=== PATIENT | female | born 1925 | race African-American/Black ===

== ENCOUNTER 2016-08-01 14:19 | Observation (INO) ==
[2016-08-01 16:29] LABS: Alanine Aminotransferase 9 Units/L (0-55); Albumin 2.5 g/dL (3.5-5.0); Albumin/Globulin Ratio 0.6 (1.1-2.2); Alkaline Phosphatase 74 Units/L (38-126); Aspartate Amino Transferase 13 Units/L (5-34); BUN/Creatinine Ratio 19 (6-26); Bilirubin,Direct 0.1 mg/dL (0.0-0.5); Bilirubin,Indirect 0.2 mg/dL (0.0-1.2); Bilirubin,Total 0.3 mg/dL (0.2-1.2); Blood Urea Nitrogen 15 mg/dL (7-20); Calcium 9.6 mg/dL (8.6-10.8); Carbon Dioxide 24 mEq/L (19-29); Chloride 111 mEq/L (98-109); Glucose 96 mg/dL (70-99); Osmolality,Calculated 295 (280-300); Potassium 4.3 mEq/L (3.5-4.5); Sodium 142 mEq/L (136-145); Total Protein 6.5 g/dL (6.0-8.3); eGFR For African Americans > 60 (> 60); eGFR For Non-African Americans > 60 (> 60)
[2016-08-01 16:30] LABS: Ethanol < 10 mg/dL (0-10)
[2016-08-01 17:35] LABS: Bilirubin,Urine Negative (Negative); Blood,Urine Negative (Negative); Clarity,Urine Turbid (Clear); Color,Urine Yellow (Yellow); Glucose,Urine (UA) Normal (Normal); Ketones,Urine Negative (Negative); Leukocyte Esterase,Urine Negative (Negative); Nitrite,Urine Negative (Negative); Protein,Urine Negative (Neg-Trace); Specific Gravity,Urine 1.013 (1.010-1.025); Urobilinogen,Urine Normal (Normal)
[2016-08-01 17:39] LABS: Bacteria,Urine Many per hpf (None-Few); Hyaline Casts,Urine None Seen per lpf (None-Few); Squamous Epithelial Cell,Urine Many per lpf (None-Few)
[2016-08-01 17:40] LABS: Amphetamine Screen,Urine Negative ng/mL (Cutoff=1000); Barbiturate Screen,Urine Negative ng/mL (Cutoff=200); Benzodiazepines Screen,Urine Negative ng/mL (Cutoff=200); Cannabinoid Screen,Urine Negative ng/mL (Cutoff = 50); Cocaine Screen,Urine Negative ng/mL (Cutoff= 300); Opiate Screen,Urine Negative ng/mL (Cutoff=300); Phencyclidine Screen,Urine Negative ng/mL (Cutoff=25)
[2016-08-01 18:17] LABS: Basophils % 0.6 %; Eosinophils # 0.2 K/mcL (0.0-0.6); Eosinophils % 3.7 %; Immature Granulocytes % 0.3 % (0-4); Lymphocytes # 1.7 K/mcL (0.6-4.6); Lymphocytes % 27.2 %; Mean Corpuscular HGB Conc 32.4 g/dL (31.6-35.5); Mean Corpuscular Hemoglobin 30.2 pg (28.0-33.3); Mean Corpuscular Volume 93.2 fL (83.0-100.0); Mean Platelet Volume 9.6 fL (9.4-12.4); Monocytes # 0.4 K/mcL (0.0-1.3); Monocytes % 5.6 %; Neutrophils # 3.9 K/mcL (1.6-8.9); Platelet Count 251 K/mcL (140-400); Red Blood Count 3.97 M/mcL (3.82-4.97); Red Cell Distribution Width 13.8 % (11.5-14.5); Segmented Neutrophils % 62.6 %
[2016-08-01 18:26] LABS: INR 1.3; Prothrombin Time 13.7 Seconds (9.4-12.1)
[2016-08-01 18:34] LABS: Activated Partial Thrombo Time 20.4 Seconds (26.0-36.0)
--- NOTE | 2016-08-01 18:51 | Emergency Department Note ---
Disposition Clinical Impression: Delirium due to general medical condition Altered mental status Qualifiers: Altered mental status type: unspecified Qualified Code(s): R41.82 - Altered mental status, unspecified Disposition: Admitted As Inpatient Condition: Good Time of Disposition: 18:53 Altered Mental Status HPI - General Chief Complaint: ED Altered Mental Status Stated Complaint: ams Time Seen by Provider: 08/01/16 14:22 Source: EMS Mode of arrival: ambulatory Limitations: altered mental status Nursing Notes Reviewed: Yes Vital Signs Reviewed: Yes - History of Present Illness HPI Narrative: History source: Patient is unable to provide information for this note. Info was gathered from the patient, hospital staff, the patient's chart. History limitations: Patient condition Medications: As per nurses note 89-year-old female brought in by EMS after a period of altered mental status where she was verbally unresponsive. Patient is currently residing at a care home, is nonambulatory, had a period of time where she was verbally unresponsive to staff. This persisted until her arrival to the emergency department where she is now able to answer basic questions. Patient is unable to provide any history regarding her symptoms. Family states the patient has periods of confusion however she is always able to answer questions and that today is different from previous times. They do report that she has a history of urinary tract infections which have resulted in similar symptoms. They deny recent trauma. They report she was recently started on any medication for Parkinson's disease but do not know which one. - Related Data Home Medications Medication Instructions Recorded Confirmed Acetaminophen [Tylenol] 325 mg PO Q6HR PRN 02/23/15 08/01/16 Amlodipine Besylate [Norvasc] 10 mg PO QAM 02/23/15 08/01/16 Aspirin Enteric Coated [Aspirin EC] 81 mg PO QAM 02/23/15 08/01/16 Atorvastatin [Lipitor] 10 mg PO HS 02/23/15 08/01/16 Docusate [Colace] 100 mg PO BID 02/23/15 08/01/16 Gabapentin 300 mg PO QAM 02/23/15 08/01/16 HydrALAZINE 50 mg PO Q8HR 02/23/15 08/01/16 Lidocaine Patch [Lidoderm 5% patch] 1 patch TP QA 02/23/15 08/01/16 Lisinopril [Zestril] 20 mg PO QAM 02/23/15 08/01/16 Magnesium Hydroxide [Milk of 30 ml PO DAILY PRN 02/23/15 08/01/16 Magnesia] Metoprolol Tartrate [Lopressor] 25 mg PO BID 02/23/15 08/01/16 Multivitamin [Multivitamins] 1 cap PO QAM 02/23/15 08/01/16 Nitroglycerin [Nitrostat] 0.4 mg SL AD PRN 02/23/15 08/01/16 Pantoprazole Sodium 40 mg PO QAM 02/23/15 08/01/16 Polyethylene Glycol 3350 [MiraLAX] 17 gm PO QAM 02/23/15 08/01/16 Pramipexole [Mirapex] 0.25 mg PO BID 02/23/15 08/01/16 Cyanocobalamin (Vitamin B-12) 1,000 mcg PO DAILY 08/01/16 08/01/16 [Vitamin B12] Divalproex Sodium [Divalproex 250 mg PO DAILY 08/01/16 08/01/16 Sodium] Nystatin POWDER [Nystop] 1 appl TP BID 08/01/16 08/01/16 Allergies Allergy/AdvReac Type Severity Reaction Status Date / Time No Known Allergies Allergy Verified 02/23/15 16:46 Limitations: ROS unobtainable due to patients medical condition Past Medical History - Past Medical History Attestation: Yes The following information was validated with the patient. Source: old records reviewed, obtained from family Medical history: Reports: arthritis, CVA, DVT, dementia, diabetes, GERD, hyperlipidemia, hypertension Surgical history: Reports: appendectomy Psychiatric history: Reports: anxiety - Social History Smoking Status: Never smoker Smokeless Tobacco Status: No Alcohol use: Reports: none Drug use: Reports: none Physical Exam General: Alert and in no acute distress Skin: Warm, dry, intact Head: Normocephalic and atraumatic Neck: Supple, trachea midline and no tenderness Cardiovascular: RRR, no murmur, normal perfusion Respiratory: CTAB, no wheezing, cough, or respiratory distress Musculoskeletal: Normal strength, no tenderness, swelling or deformity GI: Soft, nontender, nondistended. Bowel sounds present Neuro: Oriented to person only. Unable to complete a full neurologic exam. - General General appearance: in no apparent distress Course Vital Signs Temperature 98.3 F 08/01/16 14:21 Pulse Rate 66 08/01/16 14:21 Respiratory Rate 12 08/01/16 14:21 Blood Pressure 173/74 08/01/16 14:21 O2 Sat by Pulse Oximetry 99 08/01/16 14:21 Temperature 98.3 F 08/01/16 14:21 Pulse Rate 67 08/01/16 16:43 Respiratory Rate 11 08/01/16 20:18 Blood Pressure 173/73 08/01/16 20:18 O2 Sat by Pulse Oximetry 96 08/01/16 16:43 Oxygen Delivery Oxygen Delivery Room Air Altered Mental Status - MDM Narrative Medical decision making narrative: Patient admitted to the hospital for altered mental status. - Medical Records Medical records reviewed: Yes I reviewed the patient's medical records. - Lab Data Lab results reviewed: Yes I reviewed the patient's lab results. Result diagrams: 08/01/16 18:06 08/01/16 16:05 Lab Results 08/01/16 08/01/16 08/01/16 Range/Units 16:05 17:10 17:10 WBC (4.3-11.1) K/mcL RBC (3.82-4.97) M/mcL Hgb (11.5-15.4) g/dL Hct (35.3-44.9) % MCV (83.0-100.0) fL MCH (28.0-33.3) pg MCHC (31.6-35.5) g/dL RDW (11.5-14.5) % Plt Count (140-400) K/mcL MPV (9.4-12.4) fL Immature Gran % (0-4) % Seg Neutrophils % % Lymphocytes % % Monocytes % % Eosinophils % % Basophils % % Neutrophils # (1.6-8.9) K/mcL Lymphocytes # (0.6-4.6) K/mcL Monocytes # (0.0-1.3) K/mcL Eosinophils # (0.0-0.6) K/mcL Basophils # (0.0-0.2) K/mcL PT (9.4-12.1) Seconds INR APTT (26.0-36.0) Seconds Sodium 142 (136-145) mEq/L Potassium 4.3 (3.5-4.5) mEq/L Chloride 111 H (98-109) mEq/L Carbon Dioxide 24 (19-29) mEq/L BUN 15 (7-20) mg/dL Creatinine 0.80 (0.57-1.11) mg/dL Est GFR ( Amer) > 60 (> 60) Est GFR (Non-Af Amer) > 60 (> 60) BUN/Creatinine Ratio 19 (6-26) Glucose 96 (70-99) mg/dL Calculated Osmolality 295 (280-300) Calcium 9.6 (8.6-10.8) mg/dL Total Bilirubin 0.3 (0.2-1.2) mg/dL Direct Bilirubin 0.1 (0.0-0.5) mg/dL Indirect Bilirubin 0.2 (0.0-1.2) mg/dL AST 13 (5-34) Units/L ALT 9 (0-55) Units/L Alkaline Phosphatase 74 (38-126) Units/L Troponin I (0-0.03) ng/mL Serum Total Protein 6.5 (6.0-8.3) g/dL Albumin 2.5 L (3.5-5.0) g/dL Globulin 4.0 H (2.4-3.5) g/dL Albumin/Globulin Ratio 0.6 L (1.1-2.2) Urine Color Yellow (Yellow) Urine Clarity Turbid A (Clear) Urine pH 6.0 (5.0-8.0) pH Units Ur Specific [place] 1.013 (1.010-1.025) Urine Protein Negative (Neg-Trace) mg/dL Urine Glucose (UA) Normal (Normal) mg/dL Urine Ketones Negative (Negative) mg/dL Urine Blood Negative (Negative) Urine Nitrite Negative (Negative) Urine Bilirubin Negative (Negative) Urine Urobilinogen Normal (Normal) mg/dL Ur Leukocyte Esterase Negative (Negative) Urine Microscopic RBC 3-5 H (0-3) per hpf Urine Microscopic WBC 3-5 H (0-3) per hpf Ur Squamous Epith Cells Many H (None-Few) per lpf Urine Bacteria Many H (None-Few) per hpf Hyaline Casts None Seen (None-Few) per lpf Urine Yeast Test Not Performed Ur Culture Indicated? NO (NO) Urine Opiates Screen Negative (Djavsc=419) ng/mL Ur Barbiturates Screen Negative (Kwrypf=008) ng/mL Valproic Acid 28.76 L (50-100) mcg/mL Ur Phencyclidine Scrn Negative (Cutoff=25) ng/mL Ur Amphetamines Screen Negative (Badsks=5638) ng/mL U Benzodiazepines Scrn Negative (Iufsfs=036) ng/mL Urine Cocaine Screen Negative (Cutoff= 300) ng/mL U Marijuana (THC) Screen Negative (Cutoff = 50) ng/mL Ethyl Alcohol < 10 (0-10) mg/dL 08/01/16 08/01/16 08/01/16 Range/Units 18:06 18:06 18:06 WBC 6.3 (4.3-11.1) K/mcL RBC 3.97 (3.82-4.97) M/mcL Hgb 12.0 (11.5-15.4) g/dL Hct 37.0 (35.3-44.9) % MCV 93.2 (83.0-100.0) fL MCH 30.2 (28.0-33.3) pg MCHC 32.4 (31.6-35.5) g/dL RDW 13.8 (11.5-14.5) % Plt Count 251 (140-400) K/mcL MPV 9.6 (9.4-12.4) fL Immature Gran % 0.3 (0-4) % Seg Neutrophils % 62.6 % Lymphocytes % 27.2 % Monocytes % 5.6 % Eosinophils % 3.7 % Basophils % 0.6 % Neutrophils # 3.9 (1.6-8.9) K/mcL Lymphocytes # 1.7 (0.6-4.6) K/mcL Monocytes # 0.4 (0.0-1.3) K/mcL Eosinophils # 0.2 (0.0-0.6) K/mcL Basophils # 0.0 (0.0-0.2) K/mcL PT 13.7 H (9.4-12.1) Seconds INR 1.3 APTT 20.4 L (26.0-36.0) Seconds Sodium (136-145) mEq/L Potassium (3.5-4.5) mEq/L Chloride (98-109) mEq/L Carbon Dioxide (19-29) mEq/L BUN (7-20) mg/dL Creatinine (0.57-1.11) mg/dL Est GFR ( Amer) (> 60) Est GFR (Non-Af Amer) (> 60) BUN/Creatinine Ratio (6-26) Glucose (70-99) mg/dL Calculated Osmolality (280-300) Calcium (8.6-10.8) mg/dL Total Bilirubin (0.2-1.2) mg/dL Direct Bilirubin (0.0-0.5) mg/dL Indirect Bilirubin (0.0-1.2) mg/dL AST (5-34) Units/L ALT (0-55) Units/L Alkaline Phosphatase (38-126) Units/L Troponin I 0.02 (0-0.03) ng/mL Serum Total Protein (6.0-8.3) g/dL Albumin (3.5-5.0) g/dL Globulin (2.4-3.5) g/dL Albumin/Globulin Ratio (1.1-2.2) Urine Color (Yellow) Urine Clarity (Clear) Urine pH (5.0-8.0) pH Units Ur Specific [place] (1.010-1.025) Urine Protein (Neg-Trace) mg/dL Urine Glucose (UA) (Normal) mg/dL Urine Ketones (Negative) mg/dL Urine Blood (Negative) Urine Nitrite (Negative) Urine Bilirubin (Negative) Urine Urobilinogen (Normal) mg/dL Ur Leukocyte Esterase (Negative) Urine Microscopic RBC (0-3) per hpf Urine Microscopic WBC (0-3) per hpf Ur Squamous Epith Cells (None-Few) per lpf Urine Bacteria (None-Few) per hpf Hyaline Casts (None-Few) per lpf Urine Yeast Ur Culture Indicated? (NO) Urine Opiates Screen (Gyfrfw=830) ng/mL Ur Barbiturates Screen (Vlxlyp=208) ng/mL Valproic Acid (50-100) mcg/mL Ur Phencyclidine Scrn (Cutoff=25) ng/mL Ur Amphetamines Screen (Weedvt=7438) ng/mL U Benzodiazepines Scrn (Vvnhai=798) ng/mL Urine Cocaine Screen (Cutoff= 300) ng/mL U Marijuana (THC) Screen (Cutoff = 50) ng/mL Ethyl Alcohol (0-10) mg/dL - Radiology Data Radiology results reviewed: Yes I reviewed the patient's radiology results. - EKG Data EKG attestation: Yes I reviewed and interpreted this EKG. EKG results narrative: ECG - interpreted by ED physician. Rate 60, normal sinus rhythm, no STEMI, GA, QT intervals, and QRS within normal limits TPA Checklist - LKW: 3-4.5 hrs Add. Contraindications Patient/family understanding: The patient/family members have been counseled and understood the risk, benefit , and alternatives of treatment.
[2016-08-01 19:04] LABS: Valproate 28.76 mcg/mL (50-100)
[2016-08-01] MEDS ORDERED: MOM Conc 10 ML UD.LIQ PO PRN (23:09)
[2016-08-01] MEDS ORDERED: Acetaminophen 325 MG TABLET PO PRN (23:09)
[2016-08-01] MEDS ORDERED: Nitroglycerin 0.4 MG TAB.SUBL SL PRN (23:09)
[2016-08-01] MEDS ORDERED: Naloxone 0.4 MG/ML INJ IVP PRN (23:11)
[2016-08-02] MEDS: hydrALAZINE 25 MG TABLET PO SCH ×2 (00:20→08:31)
[2016-08-02] MEDS ORDERED: Dextrose Gel 15 GM PO PRN ×2 (04:09)
[2016-08-02] MEDS ORDERED: D5% in Water 1,000 ML IV PRN (04:09)
[2016-08-02] MEDS ORDERED: *HR* Dextrose 50 % in Water (Syg) 50 ML SYRINGE IVP PRN (04:09)
--- NOTE | 2016-08-02 04:15 | Internal Med History&Physical ---
Date of Encounter: 08/01/16 Time of Encounter: 23:00 Assessment and Plan (1) Change in mental status Current visit: Yes Status: Resolved -Of unclear etiology -Can be secondary to her underlying neurological disease, however during my evaluation patient is AAO x 3, able to communicate well and answers questions appropriately -No metabolic etioloy present and mental status appears to be at baseline at this time -No signs of UTI -will continue to monitor Qualifiers: Altered mental status type: unspecified Qualified Code(s): R41.82 - Altered mental status, unspecified (2) Diabetes mellitus Current visit: Yes Status: Acute -patient has a documented history of DM however HbA1C from 2013 was 5.8 and patient is not on any antihyperglycemic agents at home -Will obtain HbA1C in am -continue to monitor fingerstick and blood glucose Qualifiers: Diabetes mellitus type: type 2 Diabetes mellitus complication status: with unspecified complications Diabetes mellitus group home insulin use: without intermediate project manager use Qualified Code(s): 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 (3) Hypertension Current visit: Yes Status: Chronic BP within acceptable range continue home medications Qualifiers: Hypertension type: essential hypertension Qualified Code(s): I10 - Essential (primary) hypertension (4) Dementia Current visit: Yes Status: Chronic -Continue home medications Qualifiers: Dementia type: Parkinson's disease Dementia behavioral disturbance: without behavioral disturbance Qualified Code(s): G20 - Parkinson's disease; F02.80 - Dementia in other diseases classified elsewhere without behavioral disturbance (5) DVT prophylaxis Current visit: Yes Status: Acute Heparin SQ Internal Medicine - H&P: HPI Chief complaint: change in mental status Admitted From: Long-term Nursing Facility Plans for Post Hospital Care: Transfer Social Work Administrator Care History of present illness: Ms. Delaney is a 89 year old female with PMH of Parkinson's dementia, DM, GERD, HLD , HTN, anxiety who is sent to the ER from [place] for evaluation of change in mental status. During my evaluation, patient is resting comfortably in bed, she is AAO x 3 and able to provide me with her medical history. She states she wasn't acting like herself due to which she was sent to the ER but does not recall what exactly happened. As per records, patient has history of intermittent confusion that occurs frequently. At this time she reports of being bed bound, able to sit and get out of bed with assistance. She states she is not able to walk and is unclear of the reason. She is comfortable and denies any headache, dizziness, chest pain, sob, abd pain, n/v, fever, or chills. Social hx: Former smoker (quit 30 years ago, has history of 40+ years of smoking 1ppd) Patient unsure of her code status and wishes to discuss it with her children, therefore will remain full code at this time. Past Med Surg Social Fam HX - Past Medical History Medical history: arthritis, CVA, DVT, dementia, diabetes, GERD, hyperlipidemia, hypertension Psychiatric history: anxiety - Past Surgical History Surgical History: appendectomy - Social History Smoking Status: Former smoker Smokeless Tobacco Status: No Alcohol use: none Drug use: none - Family History Mother Adopted: No Family Member Ethnicity: Non- Living Status: Hx Family Cardiac Disorders: Yes Hx Family Respiratory Disorders: Yes Hx Family Cancer: Yes Hx Family GI Disorders: No Hx Family Endocrine Disorder: Yes Hx Family Neuromuscular Disorders: No Hx Family Neurologic Disorders: Yes Hx Family HEENT Disorders: No Hx Family Autoimmune Disorders: No Internal Medicine - H&P: Meds Acetaminophen [Tylenol] 325 mg PO Q6HR PRN 02/23/15 [History] Amlodipine Besylate [Norvasc] 10 mg PO QAM 02/23/15 [History] Aspirin Enteric Coated [Aspirin EC] 81 mg PO QAM 02/23/15 [History] Atorvastatin [Lipitor] 10 mg PO HS 02/23/15 [History] Docusate [Colace] 100 mg PO BID 02/23/15 [History] Gabapentin 300 mg PO QAM 02/23/15 [History] HydrALAZINE 50 mg PO Q8HR 02/23/15 [History] Lidocaine Patch [Lidoderm 5% patch] 1 patch TP QAM 02/23/15 [History] Lisinopril [Zestril] 20 mg PO QAM 02/23/15 [History] Magnesium Hydroxide [Milk of Magnesia] 30 ml PO DAILY PRN 02/23/15 [History] Metoprolol Tartrate [Lopressor] 25 mg PO BID 02/23/15 [History] Multivitamin [Multivitamins] 1 cap PO QAM 02/23/15 [History] Nitroglycerin [Nitrostat] 0.4 mg SL AD PRN 02/23/15 [History] Pantoprazole Sodium 40 mg PO QAM 02/23/15 [History] Polyethylene Glycol 3350 [MiraLAX] 17 gm PO QAM 02/23/15 [History] Pramipexole [Mirapex] 0.25 mg PO BID 02/23/15 [History] Cyanocobalamin (Vitamin B-12) [Vitamin B12] 1,000 mcg PO DAILY 08/01/16 [History ] Divalproex Sodium [Divalproex Sodium] 250 mg PO DAILY 08/01/16 [History] Nystatin POWDER [Nystop] 1 appl TP BID 08/01/16 [History] Allergies No Known Allergies Allergy (Verified 02/23/15 16:46) All Systems PM: A 10-system review of systems was performed and is negative for pertinent findings except as documented above in the HPI. - Constitutional Constitutional: as per HPI - Constitutional Vitals: Temp Pulse Resp BP Pulse Ox 97.7 F 58 12 150/74 100 08/02/16 03:42 08/02/16 03:42 08/02/16 03:42 08/02/16 03:42 08/02/16 03:42 General appearance: Present: cooperative, A&O X 3, pleasant, no acute distress, obese, answers questions appropriately - Head Head exam: Present: atraumatic, normocephalic - Eye Eye exam: Present: normal appearance, conjuntiva pink, sclera anicteric - Respiratory Respiratory exam: Present: CTAB. Absent: respiratory distress, wheezes - Cardiovascular Cardiovascular exam: Present: RRR, +S1, +S2 - GI/Abdominal GI/Abdominal exam: Present: normal bowel sounds, soft. Absent: distended, tenderness - Extremities Exam Extremities exam: Present: pedal edema, warm, radial pulses palpable and symetrical. Absent: calf tenderness - Neurological Exam Neurological exam: Present: alert, oriented X3, no focal deficits - Psychiatric Psychiatric exam: Present: normal affect, normal mood Internal Med - H&P Results - Labs CBC & Chem 7: 08/01/16 18:06 08/01/16 16:05
[2016-08-02 04:45] LABS: Basophils % 0.4 %; Eosinophils # 0.2 K/mcL (0.0-0.6); Eosinophils % 3.1 %; Hematocrit 37.9 % (35.3-44.9); Hemoglobin 12.2 g/dL (11.5-15.4); Immature Granulocytes % 0.4 % (0-4); Lymphocytes # 1.5 K/mcL (0.6-4.6); Lymphocytes % 20.4 %; Mean Corpuscular HGB Conc 32.2 g/dL (31.6-35.5); Mean Corpuscular Hemoglobin 30.2 pg (28.0-33.3); Mean Corpuscular Volume 93.8 fL (83.0-100.0); Mean Platelet Volume 9.9 fL (9.4-12.4); Monocytes # 0.5 K/mcL (0.0-1.3); Monocytes % 6.9 %; Platelet Count 238 K/mcL (140-400); Red Blood Count 4.04 M/mcL (3.82-4.97); Red Cell Distribution Width 13.7 % (11.5-14.5); Segmented Neutrophils % 68.8 %
[2016-08-02 05:04] LABS: Hemoglobin A1C 5.8 %
[2016-08-02 05:13] LABS: BUN/Creatinine Ratio 21 (6-26); Blood Urea Nitrogen 16 mg/dL (7-20); Calcium 9.6 mg/dL (8.6-10.8); Carbon Dioxide 27 mEq/L (19-29); Chloride 109 mEq/L (98-109); Glucose 96 mg/dL (70-99); Magnesium 1.8 mg/dL (1.6-2.6); Osmolality,Calculated 295 (280-300); Phosphorous 3.4 mg/dL (2.3-4.7); Sodium 142 mEq/L (136-145); eGFR For African Americans > 60 (> 60); eGFR For Non-African Americans > 60 (> 60)
[2016-08-02] MEDS ORDERED: *HR* Heparin 5,000 UNIT/ML VIAL SQ SCH (06:00)
[2016-08-02 07:13] VITALS: BP 157/70
[2016-08-02] MEDS ORDERED: Insulin LISPRO 300 UNITS/3 ML VIAL SQ SCH ×2 (07:30→21:00)
[2016-08-02] MEDS ORDERED: Cyanocobalamin (B-12) 1,000 MCG TABLET PO SCH (09:00)
[2016-08-02] MEDS ORDERED: Aspirin Enteric Coated 81 MG Tablet PO SCH (09:00)
[2016-08-02] MEDS ORDERED: Multivit/Ca/Min/Fe/FA 1 TAB TABLET PO SCH (09:00)
[2016-08-02] MEDS ORDERED: Lisinopril 20 MG TABLET PO SCH (09:00)
[2016-08-02] MEDS ORDERED: Gabapentin 300 MG CAPSULE PO SCH (09:00)
[2016-08-02] MEDS ORDERED: amLODIPine 5 MG TABLET PO SCH (09:00)
[2016-08-02] MEDS ORDERED: Divalproex (24 HR) 250 MG TABLET PO SCH (09:00)
[2016-08-02] MEDS ORDERED: Nystatin POWDER 30 GM BOTTLE TP SCH (09:00)
--- NOTE | 2016-08-02 11:25 | Discharge Summary ---
Date of Encounter: 08/02/16 Time of Encounter: 11:22 - Discharge Diagnosis (1) PSP (progressive supranuclear palsy) Priority: Primary Status: Acute (2) Altered mental status Priority: Primary Status: Acute Qualifiers: Altered mental status type: unspecified Qualified Code(s): R41.82 - Altered mental status, unspecified - Discharge Medications Prescriptions: Quetiapine Fumarate [SEROquel] 25 mg PO HS #30 tablet Home Medications: Acetaminophen [Tylenol] 325 mg PO Q6HR PRN 02/23/15 [History] Amlodipine Besylate [Norvasc] 10 mg PO QAM 02/23/15 [History] Aspirin Enteric Coated [Aspirin EC] 81 mg PO QAM 02/23/15 [History] Atorvastatin [Lipitor] 10 mg PO HS 02/23/15 [History] Docusate [Colace] 100 mg PO BID 02/23/15 [History] Gabapentin 300 mg PO QAM 02/23/15 [History] HydrALAZINE 50 mg PO Q8HR 02/23/15 [History] Lidocaine Patch [Lidoderm 5% patch] 1 patch TP QAM 02/23/15 [History] Lisinopril [Zestril] 20 mg PO QAM 02/23/15 [History] Magnesium Hydroxide [Milk of Magnesia] 30 ml PO DAILY PRN 02/23/15 [History] Metoprolol Tartrate [Lopressor] 25 mg PO BID 02/23/15 [History] Multivitamin [Multivitamins] 1 cap PO QAM 02/23/15 [History] Nitroglycerin [Nitrostat] 0.4 mg SL AD PRN 02/23/15 [History] Pantoprazole Sodium 40 mg PO QAM 02/23/15 [History] Polyethylene Glycol 3350 [MiraLAX] 17 gm PO QAM 02/23/15 [History] Cyanocobalamin (Vitamin B-12) [Vitamin B12] 1,000 mcg PO DAILY 08/01/16 [History ] Nystatin POWDER [Nystop] 1 appl TP BID 08/01/16 [History] Quetiapine Fumarate [SEROquel] 25 mg PO HS #30 tablet 08/02/16 [Rx] Allergies/Adverse Reactions: Allergies No Known Allergies Allergy (Verified 02/23/15 16:46) Date of admission: 08/01/16 19:44 Primary care physician: PCP GREGG Discharging clinician: Neftaly Sims Anticipated date of discharge: 08/02/16 - Patient Status Disposition: Transfer SNF Condition: Fair Functional capacity at discharge: wheelchair bound Overall status at discharge: patient is back to baseline - Discharge Instructions Instructions: Quetiapine (By mouth) Follow Up With: NO,PCP [Primary Care Provider] - - Diet and Activity Activity: as per physical therapy Diet: advance to your usual diet Interval History: Ms. Delaney is a 89 year old female with PMH of Parkinson's dementia, DM, GERD, HLD , HTN, anxiety who is sent to the ER from [place] for evaluation of change in mental status. During my evaluation, patient is resting comfortably in bed, she is AAO x 3 and able to provide me with her medical history. She states she wasn't acting like herself due to which she was sent to the ER but does not recall what exactly happened. As per records, patient has history of intermittent confusion that occurs frequently. At this time she reports of being bed bound, able to sit and get out of bed with assistance. She states she is not able to walk and is unclear of the reason. She is comfortable and denies any headache, dizziness, chest pain, sob, abd pain, n/v, fever, or chills. Social hx: Former smoker (quit 30 years ago, has history of 40+ years of smoking 1ppd) Patient unsure of her code status and wishes to discuss it with her children, therefore will remain full code at this time. Hospital course: She was admitted for further evaluation of her mental status. CT head showed no acute changed. Review of the clinical notes with neurologist Dr. Patel revealed that she is being treated for Parkinson's disease and progressive supranuclear palsy. She was seen recently on April 2016 when her mirapex was stopped and was strated on seroquel as per the neurology note. however , she still is taking the mirapex and has not been started on seroquel. meds were adjusted and she was started on seroquel. she is at baseline at the bedside this mornig with no confusion or AMS> No metabolic etioloy present and mental status appears to be at baseline at this time No signs of UTI. she is being dc back in stable condition and will give f/u to see neurology as OP in 4 weeks. Time spent discussing smoking cessation with patient: more than 10 minutes - Time Spent with Patient Total time spent providing and/or coordinating discharge services: Greater than 30 minutes - Constitutional Vitals: Temp Pulse Resp BP Pulse Ox 97.9 F 61 14 157/70 100 08/02/16 07:07 08/02/16 07:07 08/02/16 07:07 08/02/16 07:07 08/02/16 07:07 General appearance: Present: cooperative, A&O X 3, pleasant, no acute distress, obese, answers questions appropriately Exam: General appearance: Present: cooperative, A&O X 3, pleasant, no acute distress, obese, answers questions appropriately - Head Head exam: Present: atraumatic, normocephalic - Eye Eye exam: Present: normal appearance, conjuntiva pink, sclera anicteric - Respiratory Respiratory exam: Present: CTAB. Absent: respiratory distress, wheezes - Cardiovascular Cardiovascular exam: Present: RRR, +S1, +S2 - GI/Abdominal GI/Abdominal exam: Present: normal bowel sounds, soft. Absent: distended, tenderness - Extremities Exam Extremities exam: Present: pedal edema, warm, radial pulses palpable and symetrical. Absent: calf tenderness - Neurological Exam Neurological exam: Present: alert, oriented X3, no focal deficits - Psychiatric Psychiatric exam: Present: normal affect, normal mood
--- NOTE | 2016-08-02 11:28 | Physician Discharge Referral ---
ExtendedCare Referral Info Transfer To: [facility] Provider in Charge: varghese castaneda Institutional Level of Care: Intermediate - MR - Diagnosis (1) PSP (progressive supranuclear palsy) Status: Acute (2) Altered mental status Status: Acute - Transfer Medications Prescriptions: Quetiapine Fumarate [SEROquel] 25 mg PO HS #30 tablet Home Medications: Acetaminophen [Tylenol] 325 mg PO Q6HR PRN 02/23/15 [History] Amlodipine Besylate [Norvasc] 10 mg PO QAM 02/23/15 [History] Aspirin Enteric Coated [Aspirin EC] 81 mg PO QAM 02/23/15 [History] Atorvastatin [Lipitor] 10 mg PO HS 02/23/15 [History] Docusate [Colace] 100 mg PO BID 02/23/15 [History] Gabapentin 300 mg PO QAM 02/23/15 [History] HydrALAZINE 50 mg PO Q8HR 02/23/15 [History] Lidocaine Patch [Lidoderm 5% patch] 1 patch TP QAM 02/23/15 [History] Lisinopril [Zestril] 20 mg PO QAM 02/23/15 [History] Magnesium Hydroxide [Milk of Magnesia] 30 ml PO DAILY PRN 02/23/15 [History] Metoprolol Tartrate [Lopressor] 25 mg PO BID 02/23/15 [History] Multivitamin [Multivitamins] 1 cap PO QAM 02/23/15 [History] Nitroglycerin [Nitrostat] 0.4 mg SL AD PRN 02/23/15 [History] Pantoprazole Sodium 40 mg PO QAM 02/23/15 [History] Polyethylene Glycol 3350 [MiraLAX] 17 gm PO QAM 02/23/15 [History] Cyanocobalamin (Vitamin B-12) [Vitamin B12] 1,000 mcg PO DAILY 08/01/16 [History ] Nystatin POWDER [Nystop] 1 appl TP BID 08/01/16 [History] Quetiapine Fumarate [SEROquel] 25 mg PO HS #30 tablet 08/02/16 [Rx] Allergies/Adverse Reactions: Allergies No Known Allergies Allergy (Verified 02/23/15 16:46) - Respiratory Orders Oxygen / L per min (2l) Smoking Cessation: Smoking cessation has been advised. For more information, call the [employer] Tobacco Quit Line at 8-338-KRHX-NOW. - Advance Directives Code Status: Full Code - Rehabiliation Orders Rehab Potential: Fair Rehab Orders: Evaluation for Physical Therapy, Evaluation for Occupational Therapy - Diet Orders Regular CERTIFICATION: I certify that the transfer of the above named patient to an Extended Care Facility is necessary for the continuing treatment of the diagnosis listed. The above information is true and accurate reflection of patient's current condition. Confidential - Redisclosure prohibited without a patient's written consent.
--- NOTE | 2016-08-02 18:29 | Electrocardiograph Report ---
[facility] Test Date: 2016-08-01 Pat Name: Marlene Delaney Department: 104 Room: 3B32 Gender: F Stone Sawyer: ASAEL : 1925 Requested By: Abraham Saba Order Number: [id number] Reading MD: Lisa Diaz Measurements Intervals [place] Rate: 60 P: 50 GA: 213 QRS: -28 QRSD: 105 T: 142 QT: 413 QTc: 414 Interpretive Statements SINUS RHYTHM WITH FIRST DEGREE AV BLOCK LEFT VENTRICULAR HYPERTROPHY AND ST-T CHANGE POSSIBLE ANTERIOR MYOCARDIAL INFARCTION, OF INDETERMINATE AGE Electronically Signed On 08-02-16 18:28:29 EST by Lisa Diaz
== END 2016-08-02 12:55 ==
LOC: 3BNU 14:19 → EMEROO 14:19 → 3BNU 20:20
PROVIDERS: ADMIT Internal Medicine; ATTEND Nurse Practitioner Family

== ENCOUNTER 2017-06-02 22:22 | Observation (INO) ==
[2017-06-02] MEDS ORDERED: 0.9 % Sodium Chloride 1,000 ML IVC ONE (22:28)
--- NOTE | 2017-06-02 22:35 | Emergency Department Note ---
Disposition Clinical Impression: UTI (urinary tract infection) Qualifiers: Urinary tract infection type: site unspecified Hematuria presence: without hematuria Qualified Code(s): N39.0 - Urinary tract infection, site not specified Disposition: Admitted As Inpatient Condition: Undetermined Time of Disposition: 00:04 General Adult HPI - General Chief complaint: ED General Medical Stated complaint: I'm Thirsty Time Seen by Provider: 06/02/17 22:27 Source: patient, EMS Mode of arrival: EMS Limitations: no limitations Nursing Notes Reviewed: Yes Vital Signs Reviewed: Yes - History of Present Illness HPI Narrative: 89-year-old female from [facility] arrives [facility] emergency department with concern for decreased by mouth intake and thirst. The primary care physician at [facility] wanted the patient to be evaluated and labs drawn with IV fluids administered. There were unable to do so at [facility]. At that time the patient was transferred. She is alert and oriented and answering all questions appropriately. She denies any abdominal pain, chest pain, difficulty breathing. She denies any dysuria. 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 The patient is resting comfortably at this time. Onset (ago): unknown Pain Scale: 0 Improves with: nothing Worsens with: nothing Associated symptoms: Reports: denies other symptoms Treatments Prior to Arrival: none - Related Data Home Medications Medication Instructions Recorded Confirmed Acetaminophen [Tylenol] 325 mg PO Q6HR PRN 02/23/15 06/03/17 Amlodipine Besylate [Norvasc] 10 mg PO QAM 02/23/15 06/03/17 Aspirin Enteric Coated [Aspirin EC] 81 mg PO QAM 02/23/15 06/03/17 Gabapentin 300 mg PO QAM 02/23/15 06/03/17 HydrALAZINE 50 mg PO Q8HR 02/23/15 06/03/17 Lidocaine Patch [Lidoderm 5% patch] 1 patch TP QAM 02/23/15 06/03/17 Lisinopril [Zestril] 20 mg PO QAM 02/23/15 06/03/17 Magnesium Hydroxide [Milk of 30 ml PO DAILY PRN 02/23/15 06/03/17 Magnesia] Metoprolol Tartrate [Lopressor] 25 mg PO BID 02/23/15 06/03/17 Multivitamin [Multivitamins] 1 cap PO QAM 02/23/15 06/03/17 Nitroglycerin [Nitrostat] 0.4 mg SL AD PRN 02/23/15 06/03/17 Polyethylene Glycol 3350 [MiraLAX] 17 gm PO QAM 02/23/15 06/03/17 Cyanocobalamin (Vitamin B-12) 1,000 mcg PO DAILY 08/01/16 06/03/17 [Vitamin B12] Nystatin POWDER [Nystop] 1 appl TP BID 08/01/16 06/03/17 Bisacodyl [Dulcolax] 10 mg RC DAILY PRN 05/01/17 06/03/17 Sennosides [Senna] 8.6 mg PO BID 05/01/17 06/03/17 Ascorbate Calcium [Vitamin C] 500 mg PO DAILY 06/03/17 06/03/17 Quetiapine Fumarate [SEROquel] 12.5 mg PO HS 06/03/17 06/03/17 Allergies Allergy/AdvReac Type Severity Reaction Status Date / Time levodopa Allergy See Verified 05/01/17 14:26 Comments All systems ED: reviewed and negative except as stated. Constitutional: Reports: weakness. Denies: fever, chills ENT ED: Denies: congestion Cardiovascular: Denies: chest pain Respiratory: Denies: dyspnea Gastrointestinal: Denies: abdominal pain Genitourinary: Denies: urgency, dysuria Musculoskeletal: Denies: back pain, neck pain Integumentary: Denies: rash Neurological: Reports: numbness (Baseline). Denies: headache, paresthesias Past Medical History - Past Medical History Attestation: Yes The following information was validated with the patient. Source: patient Medical history: Reports: arthritis, CVA, DVT, dementia, diabetes, GERD, hyperlipidemia, hypertension Surgical history: Reports: appendectomy, orthopedic, other Psychiatric history: Reports: anxiety - Social History Smoking Status: Former smoker Smokeless Tobacco Status: No Alcohol use: Reports: none Drug use: Reports: none Physical Exam - General Limitations: no limitations General appearance: alert, in no apparent distress - Head Head exam: atraumatic, normocephalic, normal inspection - Eye Eye exam: Present: normal appearance, PERRL, EOMI - ENT ENT exam: normal exam, normal oropharynx, mucous membranes dry - Neck Neck exam: Present: normal inspection, full ROM, trachea midline - Chest Chest inspection: Present: normal inspection, symmetric chest wall rise - Respiratory Respiratory exam: Present: normal lung sounds bilaterally - Cardiovascular Cardiovascular exam: Present: regular rate, normal rhythm, normal heart sounds - Abdominal Exam Abdominal exam: Present: soft, Non-Tender. Absent: tenderness, distention, guarding, rebound, rigidity - Extremities Exam Extremities exam: Present: other (Patient has no use of bilateral lower extremities from apparent stroke according to chart.) - Neurological Exam Neurological exam: Present: alert, oriented X3, CN II-XII intact - Expanded Neurological Exam Patient oriented to: Present: person, place, time Speech: Present: fluid speech Cranial nerves: EOM function (II, III, IV, ): Normal, facial sensation (V): Normal, facial palsy (VII): Normal Motor strength - LUE: 4/5 Motor strength - RUE: 4/5 Motor strength - LLE: 0/5 Motor strength - RLE: 0/5 Sensory exam upper extremity: light touch: Normal Sensory exam lower extremity: light touch: Abnormal Left, Abnormal Right - Skin Skin exam: Present: warm, dry, intact, normal color Course Vital Signs Temperature 98.0 F 06/02/17 22:26 Pulse Rate 68 06/02/17 22:26 Respiratory Rate 18 06/02/17 22:26 Blood Pressure 113/56 06/02/17 22:26 O2 Sat by Pulse Oximetry 94 06/02/17 22:26 Temperature 97.8 F 06/03/17 02:05 Pulse Rate 60 06/03/17 02:05 Respiratory Rate 14 06/03/17 02:05 Blood Pressure 114/70 06/03/17 02:05 O2 Sat by Pulse Oximetry 96 06/03/17 02:05 Oxygen Delivery Oxygen Delivery Room Air Medical Decision Making - MDM Narrative Medical decision making narrative: Patient's workup here in the emergency department demonstrates findings consistent with UTI. Given the patient's living is in the [facility], we will treat the patient with concern for staph aureus and MRSA. The patient was started on vancomycin and Zosyn here in the emergency department with likely de-escalation once admitted. The patient given strict no signs of sepsis or hypotension. Patient is not tachycardic. She remains alert and oriented here in the emergency department. We will admit the patient to the hospitalist, accepted by Dr. Noel. - Lab Data Lab results reviewed: Yes I reviewed the patient's lab results. Result diagrams: 06/02/17 23:06 06/02/17 23:06 Lab Results 06/02/17 06/02/17 06/02/17 Range/Units 22:48 23:06 23:06 WBC 6.2 (4.3-11.1) K/mcL RBC 4.23 (3.82-4.97) M/mcL Hgb 12.2 (11.5-15.4) g/dL Hct 38.3 (35.3-44.9) % MCV 90.5 (83.0-100.0) fL MCH 28.8 (28.0-33.3) pg MCHC 31.9 (31.6-35.5) g/dL RDW 15.4 H (11.5-14.5) % Plt Count 268 (140-400) K/mcL MPV 9.5 (9.4-12.4) fL Immature Gran % 0.5 (0-4) % Seg Neutrophils % 57.0 % Lymphocytes % 31.0 % Monocytes % 6.8 % Eosinophils % 4.1 % Basophils % 0.6 % Neutrophils # 3.5 (1.6-8.9) K/mcL Lymphocytes # 1.9 (0.6-4.6) K/mcL Monocytes # 0.4 (0.0-1.3) K/mcL Eosinophils # 0.3 (0.0-0.6) K/mcL Basophils # 0.0 (0.0-0.2) K/mcL Sodium 144 (136-145) mEq/L Potassium 3.8 (3.5-4.5) mEq/L Chloride 110 H (98-109) mEq/L Carbon Dioxide 27 (19-29) mEq/L BUN 12 (7-20) mg/dL Creatinine 0.89 (0.57-1.11) mg/dL Est GFR ( Amer) > 60 (> 60) Est GFR (Non-Af Amer) 60 (> 60) BUN/Creatinine Ratio 13 (6-26) Glucose 117 H (70-99) mg/dL Calculated Osmolality 299 (280-300) Calcium 9.8 (8.6-10.8) mg/dL Total Bilirubin 0.3 (0.2-1.2) mg/dL AST 16 (5-34) Units/L ALT 10 (0-55) Units/L Alkaline Phosphatase 93 (38-126) Units/L Serum Total Protein 6.7 (6.0-8.3) g/dL Albumin 2.7 L (3.5-5.0) g/dL Globulin 4.0 H (2.4-3.5) g/dL Albumin/Globulin Ratio 0.7 L (1.1-2.2) Urine Color Dark Yellow (Yellow) Urine Clarity Cloudy A (Clear) Urine pH 6.0 (5.0-8.0) pH Units Ur Specific Spencer 1.027 H (1.010-1.025) Urine Protein 30 H (Neg-Trace) mg/dL Urine Glucose (UA) Normal (Normal) mg/dL Urine Ketones Trace H (Negative) mg/dL Urine Blood Negative (Negative) Urine Nitrite Positive A (Negative) Urine Bilirubin Negative (Negative) Urine Urobilinogen Normal (Normal) mg/dL Ur Leukocyte Esterase Large H (Negative) Urine Microscopic RBC 5-15 H (0-3) per hpf Urine Microscopic WBC TNTC H (0-3) per hpf Ur Squamous Epith Cells Many H (None-Few) per lpf Urine Bacteria Many H (None-Few) per hpf Hyaline Casts Moderate H (None-Few) per lpf Urine Mucus Few (Few) Ur Culture Indicated? YES A (NO) - EKG Data EKG #1 EKG attestation: Yes I reviewed and interpreted this EKG. EKG results narrative: Heart rate 65 bpm. NE interval 108 ms. QTC 418 ms. Normal sinus rhythm. No ST elevation but what appears to be baseline ST-T depression versus J-point depression noted on previous EKG as well from a 10/31/2016. No acute changes noted. Attestation Statement - Attestation Attestation: I examined this patient and my medical decision-making was reviewed with the Resident Physician. I agree with the documented findings, disposition and treatment plan as described except to the extent set forth below. [facility] They report that she has not been eating or drinking much. They were concerned for dehydration. They called the doctor who ordered IV fluids, however they are able to get an IV on her so they sent her to the ED. On evaluation she is awake. Mental status at baseline. Her abdomen is soft, nontender. She has stage II coccyx wounds. Muscle wasting of the lower extremities. Plan. The patient's positive for UTI. She is given IV antibiotics. IV fluids. Admitted to medicine.
[2017-06-02 22:58] LABS: Bilirubin,Urine Negative (Negative); Blood,Urine Negative (Negative); Clarity,Urine Cloudy (Clear); Color,Urine Dark Yellow (Yellow); Glucose,Urine (UA) Normal (Normal); Ketones,Urine Trace mg/dL (Negative); Leukocyte Esterase,Urine Large (Negative); Nitrite,Urine Positive (Negative); Protein,Urine 30 mg/dL (Neg-Trace); Specific Gravity,Urine 1.027 (1.010-1.025); Urobilinogen,Urine Normal (Normal)
[2017-06-02 23:00] LABS: Bacteria,Urine Many per hpf (None-Few); Squamous Epithelial Cell,Urine Many per lpf (None-Few); WBC,Urine TNTC per hpf (0-3)
[2017-06-02 23:14] LABS: Basophils % 0.6 %; Eosinophils # 0.3 K/mcL (0.0-0.6); Eosinophils % 4.1 %; Hematocrit 38.3 % (35.3-44.9); Hemoglobin 12.2 g/dL (11.5-15.4); Immature Granulocytes % 0.5 % (0-4); Lymphocytes # 1.9 K/mcL (0.6-4.6); Mean Corpuscular HGB Conc 31.9 g/dL (31.6-35.5); Mean Corpuscular Hemoglobin 28.8 pg (28.0-33.3); Mean Corpuscular Volume 90.5 fL (83.0-100.0); Mean Platelet Volume 9.5 fL (9.4-12.4); Monocytes # 0.4 K/mcL (0.0-1.3); Monocytes % 6.8 %; Neutrophils # 3.5 K/mcL (1.6-8.9); Platelet Count 268 K/mcL (140-400); Red Blood Count 4.23 M/mcL (3.82-4.97); Red Cell Distribution Width 15.4 % (11.5-14.5)
[2017-06-02 23:15] LABS: Hyaline Casts,Urine Moderate per lpf (None-Few); Mucus,Urine Few (Few)
[2017-06-02 23:31] LABS: Alanine Aminotransferase 10 Units/L (0-55); Albumin 2.7 g/dL (3.5-5.0); Albumin/Globulin Ratio 0.7 (1.1-2.2); Alkaline Phosphatase 93 Units/L (38-126); Aspartate Amino Transferase 16 Units/L (5-34); BUN/Creatinine Ratio 13 (6-26); Bilirubin,Total 0.3 mg/dL (0.2-1.2); Blood Urea Nitrogen 12 mg/dL (7-20); Calcium 9.8 mg/dL (8.6-10.8); Carbon Dioxide 27 mEq/L (19-29); Chloride 110 mEq/L (98-109); Glucose 117 mg/dL (70-99); Osmolality,Calculated 299 (280-300); Potassium 3.8 mEq/L (3.5-4.5); Total Protein 6.7 g/dL (6.0-8.3); eGFR For African Americans > 60 (> 60); eGFR For Non-African Americans 60 (> 60)
[2017-06-02 23:33] LABS: Sodium 144 mEq/L (136-145)
[2017-06-02] MEDS ORDERED: Vancomycin 1,000 MG in D5% in Water 250 ML IVPB ONE (23:41)
[2017-06-02] MEDS ORDERED: Piperacillin/Tazobactam 3.375 GM in D5% in Water 50 ML IVPB ONE (23:41)
--- NOTE | 2017-06-03 01:30 | Internal Med History&Physical ---
<YrnpaigeReilly cheng - Last Filed: 06/03/17 01:27> Date of Encounter: 06/03/17 Time of Encounter: 01:28 Assessment and Plan (1) Altered mental status Current visit: Yes Status: Acute - Reported altered mental status from baseline. Baseline at this time is unknown, no family present at bedside - Patient is alert and oriented 3, however does appear confused as unable to remember history of present illness - Patient does have a reported history of dementia - Increased confusion likely secondary to underlying dehydration versus urinary tract infection - Patient received 1 L bolus emergency department, started on vancomycin and Zosyn - We will continue normal saline at 100 mL per hour, continue Zosyn and de- escalate pending cultures Qualifiers: Altered mental status type: unspecified Qualified Code(s): R41.82 - Altered mental status, unspecified (2) Dehydration Current visit: Yes Status: Acute - She reports dehydration - Urinalysis shows dark yellow urine within elevated specific gravity -Received 1 L of saline in the emergency department - Patient reports no history of congestive heart failure, no documented echocardiogram - Continue at 100 mL per hour and monitor closely for signs of fluid overload (3) UTI (urinary tract infection) Current visit: Yes Status: Acute - Patient denies any symptoms of back pain, dysuria - Urinalysis emergency department positive for microscopic white blood cells - Urine culture pending - We will continue Zosyn - Aged as a septic at this time, normal vital signs: Normal lactic acid, no white count Qualifiers: Urinary tract infection type: site unspecified Hematuria presence: without hematuria Qualified Code(s): N39.0 - Urinary tract infection, site not specified (4) Diabetes mellitus Current visit: Yes Status: Chronic - We will controlled at this time. 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 (5) Hypertension Current visit: Yes Status: Chronic - Controlled, continue home meds Qualifiers: Hypertension type: essential hypertension Qualified Code(s): I10 - Essential (primary) hypertension (6) Dementia Current visit: Yes Status: Chronic - Unclear baseline - We will treat underlying infection and continue home medications Qualifiers: Dementia type: Parkinson's disease Dementia behavioral disturbance: without behavioral disturbance Qualified Code(s): G20 - Parkinson's disease; F02.80 - Dementia in other diseases classified elsewhere without behavioral disturbance (7) DVT prophylaxis Current visit: Yes Status: Acute Heparin 5000 units every 12 hours Internal Medicine - H&P: HPI Chief complaint: dehydration Admitted From: Emergency Dept Plans for Post Hospital Care: Home History of present illness: Ms. Delaney is a 89 year old female past medical history of hypertension, dementia presents to emergency room from an extended care facility with chief complaint of "I am thirsty". During the time of interview, patient is AOx3, however she does not appear to be a reliable historian. She states she is unsure for how long she has been feeling this way, but she does note that whenever she gets a sip of water with her medications and she always wants to drink the entire glass. She denies any symptoms of fevers, chills, lightheadedness dizziness, confusion, chest pain, shortness of breath, abdominal pain, change in bowel movements, dysuria. She is unsure of the amount of urine she is producing as she wears a depends and is incontinent of urine. in the emergency room, patient's vital signs were unremarkable. Lab results grossly normal except for a urinalysis which is showing microscopic white blood cells as well as a dark yellow color. She was started on vancomycin and Zosyn for extended coverage due to extended care facility. Urine culture in November grew Proteus. Past Med Surg Social Fam HX - Past Medical History Medical history: arthritis, CVA, DVT, dementia, diabetes, GERD, hyperlipidemia, hypertension Psychiatric history: anxiety - Past Surgical History Surgical History: appendectomy, orthopedic, other - Social History Smoking Status: Former smoker Smokeless Tobacco Status: No Alcohol use: none Drug use: none - Family History Mother Adopted: No Family Member Ethnicity: Non- Living Status: Hx Family Cardiac Disorders: Yes Hx Family Respiratory Disorders: Yes Hx Family Cancer: Yes Hx Family GI Disorders: No Hx Family Endocrine Disorder: Yes Hx Family Neuromuscular Disorders: No Hx Family Neurologic Disorders: Yes Hx Family HEENT Disorders: No Hx Family Autoimmune Disorders: No Internal Medicine - H&P: Meds Acetaminophen [Tylenol] 325 mg PO Q6HR PRN 02/23/15 [History] Amlodipine Besylate [Norvasc] 10 mg PO QAM 02/23/15 [History] Aspirin Enteric Coated [Aspirin EC] 81 mg PO QAM 02/23/15 [History] Atorvastatin [Lipitor] 10 mg PO HS 02/23/15 [History] Gabapentin 300 mg PO QAM 02/23/15 [History] HydrALAZINE 50 mg PO Q8HR 02/23/15 [History] Lidocaine Patch [Lidoderm 5% patch] 1 patch TP QAM 02/23/15 [History] Lisinopril [Zestril] 20 mg PO QAM 02/23/15 [History] Magnesium Hydroxide [Milk of Magnesia] 30 ml PO DAILY PRN 02/23/15 [History] Metoprolol Tartrate [Lopressor] 25 mg PO BID 02/23/15 [History] Multivitamin [Multivitamins] 1 cap PO QAM 02/23/15 [History] Nitroglycerin [Nitrostat] 0.4 mg SL AD PRN 02/23/15 [History] Pantoprazole Sodium 40 mg PO QAM 02/23/15 [History] Polyethylene Glycol 3350 [MiraLAX] 17 gm PO QAM 02/23/15 [History] Cyanocobalamin (Vitamin B-12) [Vitamin B12] 1,000 mcg PO DAILY 08/01/16 [History ] Nystatin POWDER [Nystop] 1 appl TP BID 08/01/16 [History] Quetiapine Fumarate [SEROquel] 25 mg PO HS #30 tablet 08/02/16 [Rx] Bisacodyl [Dulcolax] 10 mg RC DAILY 05/01/17 [History] Sennosides [Senna] 8.6 mg PO 05/01/17 [History] 3 Allergy/AdvReac Type Severity Reaction Status Date / Time levodopa Allergy See Verified 05/01/17 14:26 Comments ROS unobtainable: due to mental status (Confused) All Systems PM: A 10-system review of systems was performed and is negative for pertinent findings except as documented above in the HPI. - Constitutional Constitutional: no anorexia, no excessive sweating, no fatigue, no fever(s), no malaise - Cardiovascular Cardiovascular ROS IM: no chest pain, no diaphoresis, no dyspnea, no dyspnea on exertion, no edema, no lightheadedness, no orthopnea, no palpitations - Respiratory Respiratory: no cough, no dyspnea, no dyspnea on exertion, no wheezing - Gastrointestinal Gastrointestinal: no abdominal pain, no constipation, no diarrhea, no loose stools, no nausea, no vomiting - Genitourinary Genitourinary: urinary incontinence, no dysuria - Musculoskeletal Musculoskeletal ROS IM: no muscle weakness, no myalgias, no numbness, no tingling - Neurological Neurological ROS: no dizziness, no headache(s), no numbness, no tremor(s), no weakness - Constitutional Vitals: Temp Pulse Resp BP Pulse Ox 98.0 F 59 16 124/58 96 06/02/17 22:26 06/03/17 00:52 06/03/17 00:52 06/03/17 00:52 06/03/17 00:52 Exam: Gen.: Vitals noted. No acute distress. AAOx3. Slow conversational speaking. Poor eye contact HEENT: PERRL/EOMI, oropharynx clear, Normocephalic, atraumatic, mildly dry mucous membranes Cardiac: RRR, no murmur, +S1/S2 Pulmonary: CTA bilaterally, no wheezes, rales or rhonchi, equal chest expansion Abdomen: soft, reports mild tenderness to palpation in the suprapubic, right lower and right upper quadrants, BS noted, no guarding MSK: 4/5 strength upper extremities, 0/5 strength lower extremities Extremities: no BLE edema, nontender calf, no cyanosis or clubbing Neuro: A&Ox3, moves all extremities, no focal deficits Psych: Poor eye contact, delayed speech. Appropriate mood and behavior Internal Med - H&P Results - Labs CBC & Chem 7: 06/02/17 23:06 06/02/17 23:06 <Ravin De Dios T - Last Filed: 06/03/17 02:10> Date of Encounter: 06/03/17 Internal Medicine - H&P: HPI History of present illness: Ms. Delaney is a 89 year old female All Systems PM: A 10-system review of systems was performed and is negative for pertinent findings except as documented above in the HPI. - Constitutional Vitals: Temp Pulse Resp BP Pulse Ox 97.8 F 60 14 114/70 96 06/03/17 02:05 06/03/17 02:05 06/03/17 02:05 06/03/17 02:05 06/03/17 02:05 Internal Med - H&P Results - Labs CBC & Chem 7: 06/02/17 23:06 06/02/17 23:06 - Attending Attestation I have independently seen and examined this patient on 06/03 and discussed plan of care with resident physician Resident of [facility] with possible underlying dementia, wheel chair bound due to paraplegia and disuse atrophy of LE She states she was brought to the hospital because she is dehydrated Work up is only remarakbel for UTI Physical exam AAOX2. Disuse atrophy. Chest is clear. Abdomen is benign, extremities with trace edema and atrophy labs and Imaging reviewed Agree with UTI treatment, await cultures Resume home meds Fall precautions Rest of details as in resident physician's documentation
[2017-06-03] MEDS ORDERED: Naloxone 0.4 MG/ML INJ IVP PRN (01:44)
[2017-06-03] MEDS ORDERED: *HR* Morphine 2 MG/ML SYRINGE IVP PRN (01:44)
[2017-06-03] MEDS ORDERED: Ondansetron 4 MG/2 ML VIAL IVP PRN (01:44)
[2017-06-03] MEDS ORDERED: *HR* HYDROcodone/Acet 5/325 mg TABLET PO PRN (01:44)
[2017-06-03] MEDS ORDERED: Acetaminophen 325 MG TABLET PO PRN (01:44)
[2017-06-03] MEDS ORDERED: D5% in Water 1,000 ML IVC PRN (01:45)
[2017-06-03] MEDS ORDERED: *HR* Dextrose 50 % in Water (Syg) 50 ML SYRINGE IVP PRN (01:45)
[2017-06-03] MEDS ORDERED: Dextrose Gel 15 GM PO PRN ×2 (01:45)
[2017-06-03] MEDS: 0.9 % Sodium Chloride 1,000 ML IVC SCH ×2 (01:54→12:10)
[2017-06-03] MEDS: hydrALAZINE 25 MG TABLET PO SCH ×3 (05:20→21:43)
[2017-06-03] MEDS: *HR* Heparin 5,000 UNIT/ML VIAL SQ SCH ×2 (05:21→17:37)
[2017-06-03 07:02] LABS: Basophils # 0.1 K/mcL (0.0-0.2); Basophils % 0.6 %; Eosinophils # 0.2 K/mcL (0.0-0.6); Eosinophils % 2.4 %; Hematocrit 35.8 % (35.3-44.9); Hemoglobin 11.5 g/dL (11.5-15.4); Immature Granulocytes % 0.8 % (0-4); Lymphocytes % 23.4 %; Mean Corpuscular HGB Conc 32.1 g/dL (31.6-35.5); Mean Corpuscular Volume 90.2 fL (83.0-100.0); Mean Platelet Volume 10.7 fL (9.4-12.4); Monocytes # 0.5 K/mcL (0.0-1.3); Monocytes % 6.7 %; Neutrophils # 5.2 K/mcL (1.6-8.9); Platelet Count 222 K/mcL (140-400); Red Blood Count 3.97 M/mcL (3.82-4.97); Red Cell Distribution Width 15.5 % (11.5-14.5); Segmented Neutrophils % 66.1 %
[2017-06-03 07:13] LABS: Hemoglobin A1C 5.6 %
[2017-06-03 07:15] LABS: BUN/Creatinine Ratio 15 (6-26); Blood Urea Nitrogen 12 mg/dL (7-20); Calcium 8.7 mg/dL (8.6-10.8); Carbon Dioxide 22 mEq/L (19-29); Chloride 115 mEq/L (98-109); Glucose 115 mg/dL (70-99); Osmolality,Calculated 299 (280-300); Sodium 144 mEq/L (136-145); eGFR For African Americans > 60 (> 60); eGFR For Non-African Americans > 60 (> 60)
[2017-06-03 07:19] LABS: Lymphocytes # 1.9 K/mcL (0.6-4.6)
[2017-06-03 07:30] LABS: Potassium 4.7 mEq/L (3.5-4.5)
[2017-06-03] MEDS: Piperacillin/Tazobactam 3.375 GM in D5% in Water 50 ML IVPB SCH ×2 (08:00→17:38)
[2017-06-03] MEDS: Gabapentin 300 MG CAPSULE PO SCH (08:05)
[2017-06-03] MEDS: Sennosides 8.6 MG TABLET PO SCH (08:05)
[2017-06-03] MEDS: Aspirin Enteric Coated 81 MG Tablet PO SCH (08:05)
[2017-06-03] MEDS: amLODIPine 5 MG TABLET PO SCH (08:05)
[2017-06-03] MEDS: Nystatin POWDER 30 GM BOTTLE TP SCH ×2 (08:06→21:39)
[2017-06-03] MEDS: Bisacodyl 10 MG RECTAL SUPPOSITORY RC SCH (08:06)
[2017-06-03] MEDS: Insulin LISPRO 300 UNITS/3 ML VIAL SQ SCH ×3 (08:21→17:37)
--- NOTE | 2017-06-03 11:48 | Event Note ---
Date of Encounter: 06/03/17 Time of Encounter: 10:20 Patient is doing better this morning. She denies any pain in her abdomen. Denies any dysuria. Tolerating diet well. We will continue current antibiotics and treat for UTI. Await culture results. Clinically getting better and if she continues to improve, she should be stable for discharge tomorrow.
[2017-06-04] MEDS: Piperacillin/Tazobactam 3.375 GM in D5% in Water 50 ML IVPB SCH ×2 (00:24→08:42)
[2017-06-04] MEDS: *HR* Heparin 5,000 UNIT/ML VIAL SQ SCH ×2 (05:24→18:47)
[2017-06-04] MEDS: hydrALAZINE 25 MG TABLET PO SCH ×3 (05:31→21:29)
[2017-06-04] MEDS: Insulin LISPRO 300 UNITS/3 ML VIAL SQ SCH ×3 (08:14→16:37)
[2017-06-04] MEDS: Sennosides 8.6 MG TABLET PO SCH (08:42)
[2017-06-04] MEDS: Aspirin Enteric Coated 81 MG Tablet PO SCH (08:43)
[2017-06-04] MEDS: Gabapentin 300 MG CAPSULE PO SCH (08:43)
[2017-06-04] MEDS: Bisacodyl 10 MG RECTAL SUPPOSITORY RC SCH (08:44)
[2017-06-04] MEDS: amLODIPine 5 MG TABLET PO SCH (08:44)
[2017-06-04] MEDS: Nystatin POWDER 30 GM BOTTLE TP SCH ×2 (08:45→21:30)
--- NOTE | 2017-06-04 10:31 | Internal Med Progress Note ---
Date of Encounter: 06/04/17 Time of Encounter: 10:29 - Assessment and plan (1) Altered mental status Current Visit: Yes Status: Resolved Assessment and plan: This has now resolved. Most likely due to acute urinary tract infection. Qualifiers: Altered mental status type: disorientation Qualified Code(s): R41.0 - Disorientation, unspecified (2) UTI (urinary tract infection) Current Visit: Yes Status: Acute Assessment and plan: Urine culture growing Proteus. Patient had grown the same organism in January and at that time it was sensitive to cephalosporins. Will change antibiotic to ceftriaxone while we await final sensitivity results before discharging patient home. Qualifiers: Urinary tract infection type: acute cystitis Hematuria presence: without hematuria Qualified Code(s): N30.00 - Acute cystitis without hematuria (3) Dehydration Current Visit: Yes Status: Resolved Assessment and plan: Improved with IV hydration (4) Dementia Current Visit: Yes Status: Chronic Assessment and plan: Chronic. Follow up outpatient with primary care provider. Qualifiers: Dementia type: unspecified type Dementia behavioral disturbance: without behavioral disturbance Qualified Code(s): F03.90 - Unspecified dementia without behavioral disturbance (5) Diabetes mellitus Current Visit: Yes Status: Chronic Assessment and plan: Blood sugars are well controlled. Continue current insulin regimen Qualifiers: Diabetes mellitus type: type 2 Diabetes mellitus complication status: with unspecified complications Diabetes mellitus intermediate manager insulin use: without intermediate manager use Qualified Code(s): 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 (6) DVT prophylaxis Current Visit: Yes Status: Acute Assessment and plan: With subcutaneous heparin - Subjective Interval history: Patient is awake and alert. Feeling good. No new complaints at this time. No fever or chills reported overnight. No dysuria - Constitutional Vitals: Temp Pulse Resp BP Pulse Ox 97.4 F L 61 18 158/77 98 06/04/17 08:10 06/04/17 08:10 06/04/17 08:10 06/04/17 08:10 06/04/17 08:10 General appearance: Present: cooperative, A&O X 3, pleasant, answers questions appropriately - Neck Neck exam general surgery: Present: supple, trachea midline. Absent: lymphadenopathy - Respiratory Respiratory exam: Present: CTAB. Absent: accessory muscle use, rales, rhonchi, wheezes - Cardiovascular Cardiovascular exam: Present: RRR, +S1, +S2. Absent: diastolic murmur, gallop, rubs, systolic murmur - GI/Abdominal GI/Abdominal exam: Present: normal bowel sounds, soft, no peritoneal signs. Absent: distended, tenderness - Extremities Exam Extremities exam: Present: warm, radial pulses palpable and symmetrical. Absent : calf tenderness, cyanotic, pedal edema Internal Medicine: Result - Labs CBC & Chem 7: 06/03/17 06:45 06/03/17 06:45 - VTE Documentation of Mechanical Device: Graduated compression elastic hosiery Consult Discharge Plan - Plan Referrals: Erika Grant [Primary Care Provider] -
[2017-06-04] MEDS ORDERED: cefTRIAXone 1,000 MG in Water for inj. (sterile) 10 ML IVPB SCH ×2 (15:00→15:15)
--- NOTE | 2017-06-04 19:37 | Electrocardiograph Report ---
[place] [id number] Test Date: 2017-06-02 Pat Name: Marlene Delaney Department: 104 Room: 3A45 Gender: F Housing Director: VIDYA : 1925 Requested By: Giuseppe Fleming Order Number: [id number] Reading MD: Cristopher Chen MD Measurements Intervals [place] Rate: 65 P: 58 CO: 198 QRS: -27 QRSD: 133 T: 76 QT: 406 QTc: 418 Interpretive Statements SINUS RHYTHM BORDERLINE LEFT AXIS DEVIATION INTRAVENTRICULAR CONDUCTION DELAY Electronically Signed On 06-04-2017 19:36:26 EST by Cristopher Chen MD
[2017-06-05] MEDS: *HR* Heparin 5,000 UNIT/ML VIAL SQ SCH (05:11)
[2017-06-05] MEDS: hydrALAZINE 25 MG TABLET PO SCH (05:19)
[2017-06-05] MEDS: Insulin LISPRO 300 UNITS/3 ML VIAL SQ SCH ×2 (09:40→14:32)
[2017-06-05] MEDS: Aspirin Enteric Coated 81 MG Tablet PO SCH ×2 (11:08→13:42)
[2017-06-05] MEDS: Gabapentin 300 MG CAPSULE PO SCH ×2 (11:08→13:43)
[2017-06-05] MEDS: Bisacodyl 10 MG RECTAL SUPPOSITORY RC SCH (11:08)
[2017-06-05] MEDS: Nystatin POWDER 30 GM BOTTLE TP SCH (11:09)
[2017-06-05] MEDS: amLODIPine 5 MG TABLET PO SCH ×2 (11:09→13:43)
[2017-06-05] MEDS: Sennosides 8.6 MG TABLET PO SCH (11:09)
[2017-06-05] MEDS ORDERED: Bisacodyl 10 MG RECTAL SUPPOSITORY RC PRN (11:50)
[2017-06-05] MEDS ORDERED: Sennosides 8.6 MG TABLET PO PRN (11:50)
--- NOTE | 2017-06-05 13:29 | Discharge Summary ---
Date of Encounter: 06/05/17 Time of Encounter: 13:26 - Discharge Diagnosis (1) Altered mental status Priority: Primary Status: Resolved Qualifiers: Altered mental status type: disorientation Qualified Code(s): R41.0 - Disorientation, unspecified (2) UTI (urinary tract infection) Priority: Secondary Status: Acute Qualifiers: Urinary tract infection type: acute cystitis Hematuria presence: without hematuria Qualified Code(s): N30.00 - Acute cystitis without hematuria (3) Dehydration Priority: Secondary Status: Resolved (4) Dementia Priority: Secondary Status: Chronic Qualifiers: Dementia type: unspecified type Dementia behavioral disturbance: without behavioral disturbance Qualified Code(s): F03.90 - Unspecified dementia without behavioral disturbance (5) Diabetes mellitus Priority: Secondary Status: Chronic Qualifiers: Diabetes mellitus type: type 2 Diabetes mellitus complication status: with unspecified complications Diabetes mellitus traffic observer insulin use: without fpc use Qualified Code(s): 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 (6) DVT prophylaxis Priority: Secondary Status: Acute - Discharge Medications Prescriptions: Cefdinir [Omnicef] 300 mg PO BID #20 capsule Home Medications: Acetaminophen [Tylenol] 325 mg PO Q6HR PRN 02/23/15 [History] Amlodipine Besylate [Norvasc] 10 mg PO QAM 02/23/15 [History] Aspirin Enteric Coated [Aspirin EC] 81 mg PO QAM 02/23/15 [History] Gabapentin 300 mg PO QAM 02/23/15 [History] HydrALAZINE 50 mg PO Q8HR PRN 02/23/15 [History] Lidocaine Patch [Lidoderm 5% patch] 1 patch TP QAM 02/23/15 [History] Lisinopril [Zestril] 20 mg PO QAM 02/23/15 [History] Magnesium Hydroxide [Milk of Magnesia] 30 ml PO DAILY PRN 02/23/15 [History] Metoprolol Tartrate [Lopressor] 25 mg PO BID 02/23/15 [History] Multivitamin [Multivitamins] 1 cap PO QAM 02/23/15 [History] Nitroglycerin [Nitrostat] 0.4 mg SL AD PRN 02/23/15 [History] Polyethylene Glycol 3350 [MiraLAX] 17 gm PO QAM 02/23/15 [History] Cyanocobalamin (Vitamin B-12) [Vitamin B12] 1,000 mcg PO DAILY 08/01/16 [History ] Nystatin POWDER [Nystop] 1 appl TP BID 08/01/16 [History] Bisacodyl [Dulcolax] 10 mg RC DAILY PRN 05/01/17 [History] Sennosides [Senna] 8.6 mg PO BID PRN 05/01/17 [History] Ascorbate Calcium [Vitamin C] 500 mg PO DAILY 06/03/17 [History] Atorvastatin [Lipitor] 10 mg PO DAILY 06/03/17 [History] Quetiapine Fumarate [Seroquel] 12.5 mg PO HS 06/03/17 [History] Ranitidine HCl [Heartburn Relief] 150 mg PO BID 06/03/17 [History] Cefdinir [Omnicef] 300 mg PO BID #20 capsule 06/05/17 [Rx] Allergies/Adverse Reactions: 3 Allergy/AdvReac Type Severity Reaction Status Date / Time levodopa Allergy See Verified 05/01/17 14:26 Comments Date of admission: 06/03/17 00:14 Primary care physician: Erika Grant Consults: 06/04/17 10:31 Consult to Occupational Therapy [CONS] Routine Comment: Evaluate, develop and implement POC Reason for Consult: Evaluate for home safety Consult to Physical Therapy [CONS] Routine Comment: Evaluate, develop and implement POC Reason for Consult: Evaluate for home safety 06/04/17 10:32 Consult to Coremaking Machine Operator [CONS] Routine Reason for SW Consult: Discharge planning Discharging clinician: Harish Farrell Anticipated date of discharge: 06/05/17 - Patient Status Disposition: Transfer SNF Condition: Good Functional capacity at discharge: bed bound Overall status at discharge: patient is progressing back to baseline - Discharge Instructions Instructions: Urinary Tract Infection in Women (DC) Follow Up With: Erika Grant [Primary Care Provider] - (in 1-2 weeks) - Diet and Activity Activity: as per physical therapy, increase activity as tolerated Diet: diabetic diet, low fat, low cholesterol, low salt diet Hospital course: Ms. Delaney is a 89 year old female [facility] resident with history of recent stroke, hypertension, diabetes and dementia presented to the ER with complaints of altered mental status. She was diagnosed with acute urinary tract infection and was started on treatment with IV fluids and IV antibiotics. She slowly improved with this treatment plan and is now doing much better. She was excessively somnolent this morning as she had received higher than her baseline dose of Seroquel last night. She did improve through the day and is now doing much better. She is clinically stable for discharge back to skilled rehabilitation. Her urine culture is growing Proteus mirabilis sensitive to cephalosporins. Patient will be discharged on Omnicef to complete treatment course. - Time Spent with Patient Total time spent providing and/or coordinating discharge services: Less than 30 minutes (25 min) - Constitutional Vitals: Temp Pulse Resp BP Pulse Ox 98.4 F 59 18 137/68 98 06/05/17 10:22 06/05/17 10:22 06/05/17 10:22 06/05/17 10:22 06/05/17 10:22 General appearance: Present: cooperative, A&O X 2, pleasant, answers questions appropriately - Neck Neck exam general surgery: Present: supple, trachea midline. Absent: lymphadenopathy - Respiratory Respiratory exam: Present: CTAB. Absent: accessory muscle use, rales, rhonchi, wheezes - Cardiovascular Cardiovascular exam: Present: RRR, +S1, +S2. Absent: diastolic murmur, gallop, rubs, systolic murmur - GI/Abdominal GI/Abdominal exam: Present: normal bowel sounds, soft, no peritoneal signs. Absent: distended, tenderness - VTE Documentation of Mechanical Device: Graduated compression elastic hosiery
--- NOTE | 2017-06-05 13:34 | Physician Discharge Referral ---
[facility] Referral Info Provider in Charge after Transfer: PCP Institutional Level of Care: Skilled - Diagnosis (1) Altered mental status Priority: Primary Status: Resolved (2) UTI (urinary tract infection) Priority: Secondary Status: Acute (3) Dehydration Priority: Secondary Status: Resolved (4) Dementia Priority: Secondary Status: Chronic (5) Diabetes mellitus Priority: Secondary Status: Chronic (6) DVT prophylaxis Priority: Secondary Status: Acute Prognosis: Fair Aware of Diagnosis: Patient, Family Aware of Prognosis: Patient, Family - Transfer Medications Prescriptions: Cefdinir [Omnicef] 300 mg PO BID #20 capsule Home Medications: Acetaminophen [Tylenol] 325 mg PO Q6HR PRN 02/23/15 [History] Amlodipine Besylate [Norvasc] 10 mg PO QAM 02/23/15 [History] Aspirin Enteric Coated [Aspirin EC] 81 mg PO QAM 02/23/15 [History] Gabapentin 300 mg PO QAM 02/23/15 [History] HydrALAZINE 50 mg PO Q8HR PRN 02/23/15 [History] Lidocaine Patch [Lidoderm 5% patch] 1 patch TP QAM 02/23/15 [History] Lisinopril [Zestril] 20 mg PO QAM 02/23/15 [History] Magnesium Hydroxide [Milk of Magnesia] 30 ml PO DAILY PRN 02/23/15 [History] Metoprolol Tartrate [Lopressor] 25 mg PO BID 02/23/15 [History] Multivitamin [Multivitamins] 1 cap PO QAM 02/23/15 [History] Nitroglycerin [Nitrostat] 0.4 mg SL AD PRN 02/23/15 [History] Polyethylene Glycol 3350 [MiraLAX] 17 gm PO QAM 02/23/15 [History] Cyanocobalamin (Vitamin B-12) [Vitamin B12] 1,000 mcg PO DAILY 08/01/16 [History ] Nystatin POWDER [Nystop] 1 appl TP BID 08/01/16 [History] Bisacodyl [Dulcolax] 10 mg RC DAILY PRN 05/01/17 [History] Sennosides [Senna] 8.6 mg PO BID PRN 05/01/17 [History] Ascorbate Calcium [Vitamin C] 500 mg PO DAILY 06/03/17 [History] Atorvastatin [Lipitor] 10 mg PO DAILY 06/03/17 [History] Quetiapine Fumarate [Seroquel] 12.5 mg PO HS 06/03/17 [History] Ranitidine HCl [Heartburn Relief] 150 mg PO BID 06/03/17 [History] Cefdinir [Omnicef] 300 mg PO BID #20 capsule 06/05/17 [Rx] Allergies/Adverse Reactions: 3 Allergy/AdvReac Type Severity Reaction Status Date / Time levodopa Allergy See Verified 05/01/17 14:26 Comments - Respiratory Orders Smoking Cessation: Smoking cessation has been advised. For more information, call the [place] Tobacco Quit Line at 6-229-SYTL-NOW. - Ancillary Orders May consult with Dentist, Horse Stud Manager, Director Of Vital Statistics PRN - Advance Directives Code Status: Full Code - Mobility Orders Other (per PT) - Rehabiliation Orders Rehab Potential: Fair Rehab Orders: Evaluation for Physical Therapy, Evaluation for Occupational Therapy - Diet Orders No Concentrated Sweets (Diabetic), Cardiac CERTIFICATION: I certify that the transfer of the above named patient to an Extended Care Facility is necessary for the continuing treatment of the diagnosis listed. The above information is true and accurate reflection of patient's current condition. Confidential - Redisclosure prohibited without a patient's written consent.
[2017-06-05 15:21] VITALS: BP 125/66
[2017-06-06] MEDS ORDERED: Lisinopril 20 MG TABLET PO SCH (09:00)
== END 2017-06-05 17:03 ==
LOC: 3ANU 22:22 → EMEROO 22:22 → SUATTDRO 06-03 00:14 → 3ANU 06-03 01:00
PROVIDERS: ADMIT Internal Medicine; ATTEND Internal Medicine